=== PATIENT | male | born 1985 | race Caucasian/White ===

== ENCOUNTER 2016-06-24 01:13 | Emergency (ER) | payer SELFPAY ==
[~2016-06-24] VITALS: Ht 193 cm; Wt 125.0 kg
[2016-06-24] MEDS ORDERED: PERTUSS(ACELL),DIPH,TET VAC/PF 0.5 ML VIAL IM ONE (02:45)
[2016-06-24 02:54] VITALS: BP 122/78
== END 2016-06-24 03:19 | disposition home or self-care (01) ==
LOC: EMS 01:14
DX: S52.021A Displaced fracture of olecranon process without intraarticular extension of right ulna, initial encounter for closed fracture (principal); R42 Dizziness and giddiness; F12.90 Cannabis use, unspecified, uncomplicated; V19.9XXA Pedal cyclist (driver) (passenger) injured in unspecified traffic accident, initial encounter; Y93.89 Activity, other specified; Y92.89 Other specified places as the place of occurrence of the external cause; Y99.8 Other external cause status
CPT/HCPCS: 29105; 70450; 90471; 90715; 99284